=== PATIENT | female | born 1950 | race Caucasian/White ===

== ENCOUNTER 2018-02-22 08:00 | Inpatient (IN) | payer OTHER ==
[~2018-02-22] VITALS: Ht 149.9 cm; Wt 62.6 kg
[2018-02-22] MEDS ORDERED: AVAPRO300 MG PO (09:49)
[2018-02-22] MEDS ORDERED: SYNTHROID50 MCG PO (09:50)
[2018-02-22] MEDS ORDERED: NORVASC5 MG PO (09:50)
[2018-02-22] MEDS ORDERED: ATIVAN0.5 M1 PO (09:59)
[2018-03-08] MEDS ORDERED: COLACE100 MG PO (08:34)
[2018-03-08] MEDS ORDERED: ULTRAM50 MG PO (08:36)
== END 2018-03-08 12:25 | disposition home or self-care (01) | DRG 735 ==
LOC: O/R 03-07 06:35 → SURH 03-07 08:00 → SURG 03-07 19:09
PROVIDERS: Obstetrics & Gynecology Gynecologic Oncology
PROC: 07TC4ZZ Resection of Pelvis Lymphatic, Percutaneous Endoscopic Approach (ICD-10-PCS; 2018-03-07)
PROC: 0UT74ZZ Resection of Bilateral Fallopian Tubes, Percutaneous Endoscopic Approach (ICD-10-PCS; 2018-03-07)
PROC: 0UT24ZZ Resection of Bilateral Ovaries, Percutaneous Endoscopic Approach (ICD-10-PCS; 2018-03-07)
PROC: 0UT94ZZ Resection of Uterus, Percutaneous Endoscopic Approach (ICD-10-PCS; principal; 2018-03-07 16:00)
DX: N87.1 Moderate cervical dysplasia (principal); N80.0 Endometriosis of uterus